=== PATIENT | female | born 1990 | race Caucasian/White ===

== ENCOUNTER 2023-12-29 22:20 | Emergency (ER) | payer MEDICAID ==
[~2023-12-29] VITALS: Ht 154.9 cm; Wt 44.5 kg
[2023-12-29 23:33] VITALS: BP 109/71; TEMP 98.1; O2SAT 100
[2023-12-29] MEDS ORDERED: IBUP-1953 PO (23:48)
[2023-12-29] MEDS ORDERED: HYDR-3980 PO (23:48)
[2023-12-30] MEDS ORDERED: TDAP [DIPH/PERTUSSIS/TET] 0.5 ML VIAL IM ONE (00:15)
[2023-12-30] MEDS ORDERED: HYDROCODONE/APAP 5/325MG TABLET ONE (00:15)
[2023-12-30] MEDS: HYDROCODONE/APAP 5/325MG TABLET PO ONE (00:27)
[2023-12-30] MEDS: TDAP [DIPH/PERTUSSIS/TET] 0.5 ML VIAL IM ONE (00:28)
== END 2023-12-30 00:37 | disposition home or self-care (01) ==
LOC: ER 22:26
DX: T23.221A Burn of second degree of single right finger (nail) except thumb, initial encounter (principal); F41.9 Anxiety disorder, unspecified; Z60.2 Problems related to living alone; X10.2XXA Contact with fats and cooking oils, initial encounter; Y93.G3 Activity, cooking and baking; Y92.098 Other place in other non-institutional residence as the place of occurrence of the external cause; Y99.8 Other external cause status
CPT/HCPCS: 90715